=== PATIENT | female | born 1950 | race Caucasian/White ===

== ENCOUNTER → 2017-11-03 | Outpatient (CLI) | payer OTHER ==
[~2017-11-03] MED LIST: CILOSTAZOL100 MG PO; GLIPIZIDE ER2.5 MG PO; GLIPIZIDE-METF1 EAC1 PO; HYDRALAZINE HCL10 MG PO; VERAPAMIL HCL360 MG PO; ZANTAC150 MG PO
== END | disposition home or self-care (01) ==
LOC: NUC 08:12
DX: R94.31 Abnormal electrocardiogram [ECG] [EKG] (principal); R07.9 Chest pain, unspecified
CPT/HCPCS: 78452; 93017; A9500; J0280; J2785